=== PATIENT | female | born 1940 | race Caucasian/White ===

== ENCOUNTER → 2017-04-10 | Outpatient (CLI) | payer MEDICARE | END | disposition home or self-care (01) | LOC: MAMMO 13:29 | DX: Z12.31 Encounter for screening mammogram for malignant neoplasm of breast (principal) | CPT/HCPCS: 77067 ==

== ENCOUNTER → 2017-06-15 | Outpatient (CLI) | payer MEDICARE | END | disposition home or self-care (01) | LOC: MRI 14:13 | DX: M51.36 Other intervertebral disc degeneration, lumbar region (principal); M51.46 Schmorl's nodes, lumbar region; G89.29 Other chronic pain; R53.1 Weakness | CPT/HCPCS: 72148 ==

== ENCOUNTER → 2018-04-11 | Outpatient (CLI) | payer MEDICARE ==
[2014-08-07 15:08] VITALS: BP 116/48
[~2018-04-11] MED LIST: ASPI-482 PO; CELE200C PO; DICL75TA PO; ENAL2.5T PO; FERR325T14 PO; MAGN500C10 PO; METF500T16 PO; METO200T46 PO; OXYC1TAB15 PO; ROPI1TAB PO; SIMV40TA3 PO; TRAM1TAB4 PO; WARF-78 PO
--- NOTE | 2018-04-11 15:37 | RAD ---
EXAM: MAMMO THOMAS SCREENING BILATERAL HISTORY: Routine screening COMPARISON: 04/10/2017 This study was interpreted with the benefit of Computerized Aided Detection (CAD). FINDINGS: Breast Density: SCATTERED The breast parenchyma shows scattered fibroglandular densities. Breast parenchyma level B. There are no dominant suspicious masses, suspicious microcalcifications or evidence of architectural distortion. Benign-appearing calcification is identified in the bilateral breasts. IMPRESSION: Benign findings BI-RADS CATEGORY: 2 BENIGN FINDING RECOMMENDED FOLLOW-UP: 12M 12 MONTH FOLLOW-UP PQRS compliance statement: Patient information was entered into a reminder system with a target due date 04/11/2019 for the next mammogram. Mammography is a sensitive method for finding small breast cancers, but it does not detect them all and is not a substitute for careful clinical examination. A negative mammogram does not negate a clinically suspicious finding and should not result in delay in biopsying a clinically suspicious abnormality. "Our facility is accredited by the [employer] Mammography Program."
== END | disposition home or self-care (01) ==
LOC: MAMMO 13:28
PROVIDERS: ATTEND Family Medicine
DX: Z12.31 Encounter for screening mammogram for malignant neoplasm of breast (principal)
CPT/HCPCS: 77063; 77067

== ENCOUNTER → 2021-02-03 | Outpatient (CLI) | payer MEDICARE ==
[2014-08-07 15:08] VITALS: BP 116/48
[~2021-02-03] MED LIST changes: -ENAL2.5T PO; +ENAL2.5T9 PO; +SIMV40TA18 PO; -SIMV40TA3 PO; -WARF-78 PO; +WARF5TAB2 PO
--- NOTE | 2021-02-03 08:09 | RAD ---
INDICATION: Reason: LUMP ON R SIDE OF FACE / Spl. Instructions: / History: COMPARISON: None. FINDINGS: Focused ultrasound images are obtained of the right side of the face. 18 x 15 x 7 mm oval-shaped hypoechoic masslike structure is identified with a suspected central echog enic hilum with vascularity within. There is an adjacent 12 x 6 mm prominent lymph node with thickened cortex. IMPRESSION: * Within the subcutaneous soft tissues at the right side of the face there is a hypoechoic masslike structure identified with the most likely cause being an enlarged abnormal lymph node with thickened cortex. This could be reactive or neoplastic in nature and follow-up will be needed to ensure that t his appropriately decreases in size to ensure that this is not neoplastic in nature since neoplastic causes such as metastatic disease or lymphoma as well as nonneoplastic disease such as reactive mejia es from infection are within the differential. There is an adjacent smaller abnormal-appearing lymph nodes seen as well. Electronically signed by: Marito Lacey MD (02/03/2021 8:07 AM) [id number]
== END ==
LOC: US 15:24
PROVIDERS: ATTEND Family Medicine
DX: R22.0 Localized swelling, mass and lump, head (principal)
CPT/HCPCS: 76881

== ENCOUNTER → 2021-03-03 | Outpatient (CLI) | payer MEDICARE ==
[~2021-03-03] VITALS: Ht 160 cm; Wt 89.5 kg
[~2021-03-03] MED LIST changes: +DICL50TA4 PO; +GLIP5TAB10 PO; +LIDOCAINE WITH 8.4% SOD BICARB 3 ML DISP.SYRIN. IJ ONE; +LIDOCAINE WITH 8.4% SOD BICARB 3 ML DISP.SYRIN. ONE; +METO25TA4 PO
[2021-03-03 09:10] VITALS: BP 144/66
[2021-03-03 09:54] VITALS: BP 167/57
[2021-03-03 10:03] VITALS: BP 169/91
--- NOTE | 2021-03-04 13:30 | RAD ---
Procedure: US LYMPH NODE BIOPSY 03/03/2021 Clinical Indication: Abnormal lymph node in the subcutaneous tissues of the risks of the face. Anesthesia: Local anesthesia only. Continuous cardiopulmonary monitoring was performed by independent qualified nursing personnel. Complications: None Consent: The procedure was explained in its entirety to the patient or the patients designated repre sentative by a member of the treatment team, including a discussion of the risks, benefits and common ly accepted alternatives to the procedure, as well as the expected consequences of no therapy whatsoe camryn. Discussion of the risks included, but was not limited to, those that are most frequent and those that are rare but possibly severe or life-threatening, as well as the possibility of unforeseen comp lications. All questions were answered and informed consent was obtained. Sterility: All elements of maximal sterile barrier technique including the use of a cap, mask, steril e gloves, sterile drape, appropriate hand hygiene, and 2% chlorhexidine for cutaneous antisepsis (or acceptable alternative antiseptic per current guidelines) were followed for this procedure. Patient was placed in the supine position. The right face was prepped and draped in appropriate steri le fashion. A timeout was performed. Limited ultrasound scanning of the right jaw line was performed . The thickened, abnormal lymph node was identified and a skin entry site was marked on the patient's skin. Local lidocaine was given. A small skin destiny was made followed by the 17 gauce mar tip int roducer needle which was advanced to the lymph node. 4 18-gauge core needle biopsies were obtained. T he blunt stylette was placed through the introducer needle and the needle was removed. Pressure was h eld to achieve hemostasis and a sterile dressing was placed. Limited scanning throughout the area did not demonstrate any immediate complications. Impression: Ultrasound guided right jaw line lymph node biopsy. Electronically signed by: Misbah Valdes (03/04/2021 1:27 PM) [id number]
--- NOTE | 2021-03-08 16:10 | PATHOLOGY ---
[facility] Accession Number: [id number] . 01 Material submitted: . submandibular gland - RIGHT SUBMANDIBULAR MASS . 02 Diagnosis: Right submandibular mass biopsy: - Tissue insufficient for diagnosis. (JPM:[facility]; 03/08/2021) S 03/08/2021 1036 Local . 02 Comment: Sections of the right submandibular mass biopsy reveal segments of fibroadipose tissue showing focal recent hemorrhage, and blood clot. There is no salivary gland tissue or lymph node present. There is no evidence of malignancy. . A portion of the specimen submitted for flow cytometric analysis has a viability of 78.5%. Due to the low cellularity, a limited flow cytometry panel is performed. Lymphocytes comprise 50.4% of total cells. T-cells comprise 86% of lymphoid cells and show a CD4:CD8 ratio of 1.4. Mature B-cells are too few to assess light chain clonality. There are no definitive diagnostic immunophenotypic findings detected (see flow report [id number]). (JPM:[facility]; 03/08/2021) . 02 Electronically signed: . Venkatesh Michael MD, Pathologist NPI- [id number] . 01 Gross description: . Received in formalin labeled "Sloane Tam, right submandibular mass" are multiple irregular fragments of yellow-gandhi soft tissue and red-brown blood material measuring in aggregate 0.5 x 0.3 x 0.1 cm. The specimen is submitted in cassette A1. ([facility] [place]; 03/04/2021) [facility] 03/04/2021 0943 Local . 02 Pathologist provided ICD-10: K11.8 . 02 CPT . 127910 Specimen Comment: A courtesy copy of this report has been sent to [phone], [phone] Specimen Comment: [id number] Specimen Comment: Report sent to / DR CONNOR Specimen Comment: A duplicate report has been generated due to demographic updates. Performed at: 01 [facility] [address] [id number] MD Rod Mayo MD Phone: [phone] Performed at: 02 [facility] [address] [place], [place] [id number] MD Venkatesh Michael MD Phone: [phone]
== END | disposition home or self-care (01) ==
LOC: INTRAD 08:36
PROVIDERS: ATTEND Family Medicine
DX: M27.8 Other specified diseases of jaws (principal); K11.8 Other diseases of salivary glands; I10 Essential (primary) hypertension; E78.00 Pure hypercholesterolemia, unspecified; E11.9 Type 2 diabetes mellitus without complications; E66.9 Obesity, unspecified; M19.90 Unspecified osteoarthritis, unspecified site; Z79.82 Long term (current) use of aspirin; Z79.84 Long term (current) use of oral hypoglycemic drugs; Z79.899 Other long term (current) drug therapy; Z90.710 Acquired absence of both cervix and uterus; Z98.890 Other specified postprocedural states; Z82.49 Family history of ischemic heart disease and other diseases of the circulatory system; Z83.3 Family history of diabetes mellitus; Z88.8 Allergy status to other drugs, medicaments and biological substances
CPT/HCPCS: 38505; 76942; 88184; 88185; 88305; J3490